=== PATIENT | male | born 1995 | race African-American/Black ===

== ENCOUNTER → 2020-05-12 | Outpatient (CLI) | payer OTHER ==
[~2020-05-12] MED LIST: GADOBENATE DIMEGLUMINE 1 ML IV ONE
--- NOTE | 2020-05-12 15:00 | Diagnostic Imaging Report ---
MRI BRAIN WOW HISTORY: Intracranial hemangiomas COMPARISON: None available at time of dictation. TECHNIQUE: Multiplanar, multisequence MRI of the brain (including diffusion-weighted imaging) was performed before and after the administration of intravenous, gadolinium based contrast. DISCUSSION: Scalp/bone marrow: Left frontal craniotomy changes are present. Right frontal and right parietal adrián hole is also present. Right scalp susceptibility artifact from shunt reservoirs obscures some details. Brain sulci: Overall appropriate for patient's age. Ventricles: Right frontal approach ventricular shunt catheter terminates near the right foramen of Keo. Additional right parietal approach ventricular shunt catheter terminates in the body of the right lateral ventricle. There is mild T2/FLAIR hyperintense vasogenic edema and/or gliosis along both catheter tracts. The right lateral ventricle is collapsed. There is mild ex vacuo dilatation of the left lateral ventricle. Mild hemosiderin staining is seen in the atrium and temporal horn of the left lateral ventricle. The third and fourth ventricles are otherwise unremarkable. Extra-axial spaces: Thin dural T2/FLAIR hyperintensity along the left frontal convexity without significant mass effect may be post craniotomy change. Otherwise, no additional masses or fluid collections. Parenchyma: Slitlike resection cavity along the left superior frontal sulcus extends to the ependyma of the left lateral ventricle (at junction of frontal horn and body). Surrounding left frontal parenchymal T2/FLAIR hyperintensity may be due to gliosis and/or vasogenic edema. Approximately 0.8 cm nodular T2 hyperintense, peripherally hemosiderin stained juxtacortical lesion in the right mesial temporal lobe is compatible with a hemangioma. Similar 1.6 cm lesion in the posterior left centrum semiovale, 1 cm lesion in the anterior right thalamus, and 0.8 cm juxtacortical lesion in the left temporal pole are also consistent with hemangiomas. The left centrum semiovale lesion slightly bulges into the atrium of the left lateral ventricle. There is no significant mass effect or brain herniation. Otherwise, no definite acute vascular insults are seen. Vessels: Normal flow voids in major arteries and veins. Sellar/Suprasellar region: No abnormalities. Craniocervical junction: No abnormalities. Incidental findings: None. IMPRESSION: Susceptibility artifacts from shunt reservoirs in the right scalp obscures some details. In spite of limitations: 1. Left frontal craniotomy changes with underlying left superior frontal slitlike resection cavity. T2/FLAIR hyperintensity around the resection cavity may be due to gliosis and/or vasogenic edema. 2. Right frontal and right parietal approach ventricular shunt catheters are in place. Mild parenchymal T2/FLAIR hyperintensity along both catheter tracts may be due to vasogenic edema and/or gliosis. The right lateral ventricle is collapsed. There is mild ex vacuo dilatation of the left lateral ventricle. 3. Focal hemosiderin stained, T2 hyperintense lesions in the right mesial temporal lobe, posterior left centrum semiovale, anterior right thalamus, and left temporal pole are compatible with hemangiomas (given patient's history). The largest lesion in the posterior left centrum semiovale measures up to 1.6 cm in size and slightly bulges into the atrium of the left lateral ventricle. Signed by: Dr. Philippe Padilla M.D. on 05/12/2020 2:57 PM
== END ==
LOC: MRI 09:49
PROVIDERS: ATTEND Psychiatry & Neurology Child & Adolescent Psychiatry
DX: D18.02 Hemangioma of intracranial structures (principal)
CPT/HCPCS: 70553